=== PATIENT | female | born 1990 | race American Indian/Alaskan Native ===

== ENCOUNTER 2017-09-05 08:33 | Emergency (ER) | payer OTHER ==
[2017-09-05] MEDS ORDERED: PROVENTIL IH ONE (08:57)
[2017-09-05] MEDS ORDERED: DELTASONE PO ONE (09:00)
--- NOTE | 2017-09-05 09:00 | Emergency Department Report ---
ED Asthma HPI - General Chief Complaint: Adult Asthma Stated Complaint: MERRY/ASTHMA Time Seen by Provider: 09/05/17 08:48 Source: patient Mode of arrival: Ambulatory Limitations: No Limitations - History of Present Illness Initial Comments: This is a 27 y.o. female that presents with SOB and chest tightness since last night around 2300. She have a history of asthma and out of albuterol inhaler for 3 months. The weather changed and she noticed a change in breathing but thought taking OTC allergy medication would prevent asthma attack. Symptoms got worse around 0400 this morning and she decided to come in for breathing treatment. Denies chest pain, palpitations, fever, cough, and rhinorrhea. She have a history of HTN as well and currently not taking medication. MD Complaint: shortness of breath, wheezing -: Gradual, Last night Time: 23:00 Asthma History: childhood onset, history of prior ED visit Severity: mild Context: ran out of meds, medication non-compliance, exercise Associated Symptoms: dry cough, chest pain (chest tight) - Related Data Current Asthma Therapy: inhaled bronchodilator (out of albuterol inhaler) Previous Rx's Medication Instructions Recorded Last Taken Type ALBUTEROL Inhaler [ProAir HFA 2 puff IH QID PRN #1 inhalation 09/05/17 Unknown Rx Inhaler] Prednisone [predniSONE 10 mg 10 mg PO .TAPER #1 tab.ds.pk 09/05/17 Unknown Rx (6-Day Pack, 21 Tabs)] Allergies Allergy/AdvReac Type Severity Reaction Status Date / Time pineapple Allergy Itching Verified 09/05/17 08:36 ED Review of Systems ROS: Stated complaint: MERRY/ASTHMA Other details as noted in HPI Constitutional: denies: chills, fever ENT: denies: ear pain, throat pain Respiratory: cough, SOB with exertion, wheezing. denies: shortness of breath Cardiovascular: denies: chest pain, palpitations Gastrointestinal: denies: abdominal pain, nausea, diarrhea Neurological: denies: headache, weakness, paresthesias ED Past Medical Hx - Past Medical History Hx Hypertension: Yes Hx Asthma: Yes - Surgical History Additional Surgical History: C SECTION - Social History Smoking Status: Never Smoker Substance Use Type: None - Medications Home Medications: Home Medications Medication Instructions Recorded Confirmed Last Taken Type ALBUTEROL Inhaler [ProAir HFA 2 puff IH QID PRN #1 inhalation 09/05/17 Unknown Rx Inhaler] Prednisone [predniSONE 10 mg 10 mg PO .TAPER #1 tab.ds.pk 09/05/17 Unknown Rx (6-Day Pack, 21 Tabs)] ED Physical Exam - General Limitations: No Limitations General appearance: alert, in no apparent distress - Respiratory Respiratory exam: Present: normal lung sounds bilaterally, wheezes (throughout, expiratory). Absent: rales, rhonchi, stridor, chest wall tenderness, accessory muscle use - Cardiovascular Cardiovascular Exam: Present: regular rate, normal rhythm, normal heart sounds. Absent: systolic murmur, diastolic murmur, rubs, gallop - GI/Abdominal GI/Abdominal exam: Present: soft, normal bowel sounds - Neurological Exam Neurological exam: Present: alert, oriented X3, normal gait - Psychiatric Psychiatric exam: Present: normal affect, normal mood - Skin Skin exam: Present: warm, dry, intact, normal color. Absent: rash ED Course Vital Signs 09/05/17 09/05/17 08:37 09:40 Temperature 98 F 98.3 F Pulse Rate 75 83 Respiratory 20 20 Rate Blood Pressure 149/65 Blood Pressure 120/86 [Left] O2 Sat by Pulse 95 100 Oximetry ED Medical Decision Making - Medical Decision Making 27 y.o. female that presents with SOB and chest tightness since last night. History of Asthma and HTN. Noncompliant with medication. She ran out of albuterol inhaler 3 months ago. Patient examined by me and in slight distress. Vitals stable. Given duoneb treatment once and prednisone 60 mg po once in ER. Wheezes resolved and sat 100% on room air. Asthma exacerbation, Start albuterol and prednisone taper. Discharged home stable. Encouraged to do supportive care for URI. No medication ordered. Return to work tomorrow. Critical care attestation.: If time is entered above; I have spent that time in minutes in the direct care of this critically ill patient, excluding procedure time. ED Disposition Clinical Impression: Asthma exacerbation Qualifiers: Asthma severity: mild Asthma persistence: intermittent Qualified Code(s): J45.21 - Mild intermittent asthma with (acute) exacerbation Disposition: TO HOME OR SELFCARE Is pt being admited?: No Does the pt Need Aspirin: No Condition: Stable Instructions: Asthma (ED), Reactive Airways Disease (ED) Additional Instructions: It is important to use inhaler or have active albuterol inhaler and avoiding asthma triggers. Complete full course of prednisone steroids as prescribed. Follow up with Primary Care Provider in 24-72 hours. Prescriptions: ALBUTEROL Inhaler [ProAir HFA Inhaler] 2 puff IH QID PRN #1 inhalation PRN Reason: Shortness Of Breath Prednisone [predniSONE 10 mg (6-Day Pack, 21 Tabs)] 10 mg PO .TAPER #1 tab.ds.pk Referrals: PRIMARY CARE, [Primary Care Provider] - 3-5 Days [facility] [Outside] - 3-5 Days [facility] [Outside] - 3-5 Days [facility] [Outside] - 3-5 Days Forms: Work/School Release Form(ED) Time of Disposition: 10:25 Print Language: AUSTRIAN
[2017-09-05 09:40] VITALS: BP 120/86
== END 2017-09-05 10:32 | disposition home or self-care (01) ==
LOC: ED 08:33
DX: J45.21 Mild intermittent asthma with (acute) exacerbation (principal); I10 Essential (primary) hypertension; Z91.018 Allergy to other foods
CPT/HCPCS: 99283; J7512

== ENCOUNTER 2017-09-10 15:56 | Emergency (ER) | payer OTHER ==
[2017-09-10 16:03] VITALS: BP 124/88
[2017-09-10] MEDS ORDERED: MOTRIN PO ONE (16:43)
[2017-09-10 16:52] LABS: HCG Qualitative,Urine Negative (Negative)
[2017-09-10 16:54] LABS: Bacteria,Urine 1+ /HPF (Negative); Bilirubin,Urine NEG (Negative); Blood,Urine NEG (Negative); Color,Urine Yellow (Yellow); Protein,Urine <15 mg/dL mg/dL (Negative); Urobilinogen,Urine < 2.0 mg/dL (<2.0)
--- NOTE | 2017-09-10 16:57 | Emergency Department Report ---
HPI - General Chief Complaint: Extremity Injury, Lower Time Seen by Provider: 09/10/17 16:29 - HPI HPI: Patient is a 27-year-old female presents ED complaining of toe pain status post suitcase falling on her to toe, left foot. Patient denies laceration or swelling but states that her foot toe pain is worsened ED Past Medical Hx - Past Medical History Hx Hypertension: Yes Hx Asthma: Yes - Surgical History Additional Surgical History: C SECTION - Social History Smoking Status: Never Smoker Substance Use Type: None - Medications Home Medications: Home Medications Medication Instructions Recorded Confirmed Last Taken Type ALBUTEROL Inhaler [ProAir HFA 2 puff IH QID PRN #1 inhalation 09/05/17 Unknown Rx Inhaler] Prednisone [predniSONE 10 mg 10 mg PO .TAPER #1 tab.ds.pk 09/05/17 Unknown Rx (6-Day Pack, 21 Tabs)] Cyclobenzaprine [Flexeril] 10 mg PO QHS PRN #20 tablet 09/10/17 Unknown Rx Ibuprofen [Motrin] 800 mg PO Q8HR PRN #30 tablet 09/10/17 Unknown Rx Sulfamethoxazole/Trimethoprim 1 each PO BID #14 tablet 09/10/17 Unknown Rx [Bactrim 400-80 mg Tablet] ED Review of Systems ROS: Stated complaint: TOE INJURY Other details as noted in HPI Constitutional: denies: chills, fever Eyes: denies: eye pain, eye discharge, vision change ENT: denies: ear pain, throat pain Respiratory: denies: cough, shortness of breath, wheezing Cardiovascular: denies: chest pain, palpitations Endocrine: no symptoms reported Gastrointestinal: denies: abdominal pain, nausea, diarrhea Genitourinary: denies: urgency, dysuria, discharge Musculoskeletal: denies: back pain, joint swelling, arthralgia Skin: denies: rash, lesions Neurological: denies: headache, weakness, paresthesias Psychiatric: denies: anxiety, depression Hematological/Lymphatic: denies: easy bleeding, easy bruising Physical Exam - Physical Exam Vital Signs: Vital Signs 09/10/17 16:00 Temperature 98.0 F Pulse Rate 98 H Respiratory 16 Rate Blood Pressure 124/88 O2 Sat by Pulse 100 Oximetry Physical Exam: GENERAL: Alert and oriented x3, no apparent distress, Normal Gait, atraumatic. HEAD: Head is normocephalic and a-traumatic. LUNGS: Symetrical with respiration, No wheezing, no rales or crackles, CTAB. HEART: S1, S2 present, regular rate and rhythm without murmur, no rubs, no gallops. Non tender to palpation EXTREMITIES/MUSCULOSKELETAL: No cyanosis, clubbing, rash, lesions or edema. Full ROM bilaterally. Pedal Pulses 2+ bilaterally. LE 5+ strength bilaterally , NEUROLOGIC: The patient is cooperative with no focal neurologic deficits. Normal speech. Normal sensation in bilateral upper and lower extremities, No loss of sensation, PSYCHIATRIC: Mood is congruent with affect, denies suicidal or homicidal ideations. SKIN: Warm and dry, No lesions, No ulceration or induration present. ED Course Vital Signs 09/10/17 16:00 Temperature 98.0 F Pulse Rate 98 H Respiratory 16 Rate Blood Pressure 124/88 O2 Sat by Pulse 100 Oximetry ED Medical Decision Making - Radiology Data Radiology results: report reviewed, image reviewed Critical care attestation.: If time is entered above; I have spent that time in minutes in the direct care of this critically ill patient, excluding procedure time. ED Disposition Clinical Impression: Toe pain, left UTI (urinary tract infection) Qualifiers: Urinary tract infection type: acute cystitis Hematuria presence: without hematuria Qualified Code(s): N30.00 - Acute cystitis without hematuria Injury of toe on left foot Qualifiers: Encounter type: initial encounter Qualified Code(s): S99.922A - Unspecified injury of left foot, initial encounter Disposition: TO HOME OR SELFCARE Is pt being admited?: No Does the pt Need Aspirin: No Condition: Stable Instructions: Urinary Tract Infection in Women (ED), Arthralgia (ED) Additional Instructions: Make sure to follow up with the primary care physician as discussed. Take all your medications as you've been prescribed. If you have any worsening symptoms or develop new symptoms please return to ED immediately. Prescriptions: Cyclobenzaprine [Flexeril] 10 mg PO QHS PRN #20 tablet PRN Reason: Muscle Spasm Ibuprofen [Motrin] 800 mg PO Q8HR PRN #30 tablet PRN Reason: Pain Sulfamethoxazole/Trimethoprim [Bactrim 400-80 mg Tablet] 1 each PO BID #14 tablet Referrals: PRIMARY CARE, [Primary Care Provider] - 3-5 Days [facility] [Outside] - 3-5 Days [facility] [Outside] - 3-5 Days [facility] [Outside] - 3-5 Days Forms: Work/School Release Form(ED) Time of Disposition: 18:47
--- NOTE | 2017-09-10 19:52 | XRay Report ---
FINAL REPORT PROCEDURE: Left foot. TECHNIQUE: Three views. HISTORY: Second toe injury. COMPARISON: No prior studies are available for comparison. FINDINGS: The bones appear intact without fracture or dislocation. The joint spaces appear normal. The soft tissues are unremarkable. IMPRESSION: Normal study.
== END 2017-09-10 19:10 | disposition home or self-care (01) ==
LOC: ED 15:56
DX: S99.922A Unspecified injury of left foot, initial encounter (principal); I10 Essential (primary) hypertension; N39.0 Urinary tract infection, site not specified; W20.8XXA Other cause of strike by thrown, projected or falling object, initial encounter; Y93.89 Activity, other specified; Y92.89 Other specified places as the place of occurrence of the external cause; Y99.8 Other external cause status
CPT/HCPCS: 81001; 81025; 99284

== ENCOUNTER 2017-10-29 16:49 | Emergency (ER) | payer OTHER ==
[2017-10-29] MEDS ORDERED: DUONEB *Not for PRN Use IH ONE (16:56)
[2017-10-29 17:17] LABS: Basophils % (Auto) 0.3 % (0.0-1.8); Eosinophils % (Auto) 0.4 % (0.0-4.3); Hematocrit 37.3 % (30.3-42.9); Hemoglobin 12.7 gm/dl (10.1-14.3); Lymphocytes # (Auto) 2.1 K/mm3 (1.2-5.4); Lymphocytes % (Auto) 32.7 % (13.4-35.0); Mean Corpuscular HGB Conc 34 % (30-34); Mean Corpuscular Hemoglobin 28 pg (28-32); Mean Corpuscular Volume 84 fl (79-97); Monocytes # (Auto) 0.6 K/mm3 (0.0-0.8); Monocytes % (Auto) 8.7 % (0.0-7.3); Platelet Count 294 K/mm3 (140-440); Red Blood Count 4.47 M/mm3 (3.65-5.03); Red Cell Distribution Width 12.3 % (13.2-15.2)
[2017-10-29 17:28] LABS: BUN/Creatinine Ratio 15; Blood Urea Nitrogen 9 mg/dL (7-17); Hemolysis Index 9
--- NOTE | 2017-10-29 18:53 | XRay Report ---
FINAL REPORT EXAM: XR CHEST ROUTINE 2V HISTORY: Shortness of breath TECHNIQUE: 2 views of the chest. PRIORS: None. FINDINGS: The cardiomediastinal silhouette appears normal. The lungs are clear. The bones and soft tissues are unremarkable. IMPRESSION: No evidence of acute cardiopulmonary disease
== END 2017-10-29 23:45 | disposition left against medical advice (07) ==
LOC: ED 16:49
DX: R06.00 Dyspnea, unspecified (principal); Z53.21 Procedure and treatment not carried out due to patient leaving prior to being seen by health care provider
CPT/HCPCS: 36415; 71046; 80048; 84484; 84703; 85025; 85379; 93005; 93010

== ENCOUNTER 2017-12-28 23:53 | Emergency (ER) | payer OTHER ==
[2017-12-29 00:08] VITALS: BP 148/91
[2017-12-29] MEDS ORDERED: DUONEB *Not for PRN Use IH ONE (00:08)
== END 2017-12-29 02:00 | disposition left against medical advice (07) ==
LOC: ED 23:53
DX: J45.909 Unspecified asthma, uncomplicated (principal); F17.200 Nicotine dependence, unspecified, uncomplicated; Z91.018 Allergy to other foods; Z53.21 Procedure and treatment not carried out due to patient leaving prior to being seen by health care provider

== ENCOUNTER 2018-01-17 20:04 | Emergency (ER) | payer OTHER ==
[2018-01-17] MEDS ORDERED: DUONEB *Not for PRN Use IH ONE ×2 (20:23→20:42)
[2018-01-17] MEDS ORDERED: DELTASONE PO ONE (20:45)
[2018-01-17 21:49] LABS: HCG Qualitative,Urine Negative (Negative)
--- NOTE | 2018-01-17 23:39 | XRay Report ---
FINAL REPORT EXAM: XR CHEST ROUTINE 2V HISTORY: cough and MERRY TECHNIQUE: 2 views of the chest. PRIORS: 10/29/2017 FINDINGS: The cardiomediastinal silhouette appears normal. The lungs are clear. The bones and soft tissues are unremarkable. IMPRESSION: No evidence of acute cardiopulmonary disease
--- NOTE | 2018-01-17 23:59 | Emergency Department Report ---
ED Asthma HPI - General Chief Complaint: Adult Asthma Stated Complaint: MERRY Time Seen by Provider: 01/17/18 23:48 Source: patient, family Mode of arrival: Ambulatory Limitations: No Limitations - History of Present Illness Initial Comments: This is a 27-year-old female here report that she has asthma attack with wheezing, cough and difficulty breathing. She says she's been having nasal congestion and runny nose over the last 2 weeks and now she is having in worsening symptoms. Wheezing worsened over the last 2 days. Reports some chest tightness which is similar when she gets her asthma attack. She says she use albuterol but is not working. She also is requesting a refill on her albuterol because she says she ran out. She says she does have a primary care physician. Denies any nausea or vomiting. Denies any fever or chills. Pain is 0 out of 10 at present. MD Complaint: "asthma attack", shortness of breath, wheezing Onset/Timin -: week(s) Asthma History: childhood onset, history of prior ED visit Severity: similar to prior Context: recent URI, ran out of meds Associated Symptoms: dry cough. denies: fever, chest pain, hemoptysis, leg edema, syncope Treatments Prior to Arrival: inhaled bronchodilator - Related Data Current Asthma Therapy: inhaled bronchodilator Previous Rx's Medication Instructions Recorded Last Taken Type Cyclobenzaprine [Flexeril] 10 mg PO QHS PRN #20 tablet 09/10/17 Unknown Rx Ibuprofen [Motrin] 800 mg PO Q8HR PRN #30 tablet 09/10/17 Unknown Rx Sulfamethoxazole/Trimethoprim 1 each PO BID #14 tablet 09/10/17 Unknown Rx [Bactrim 400-80 mg Tablet] ALBUTEROL Inhaler [ProAir HFA 2 puff IH Q6HR PRN #1 inhalation 01/18/18 Unknown Rx Inhaler] Cetirizine HCl [ZyrTEC] 10 mg PO QAM 14 Days #14 capsule 01/18/18 Unknown Rx Fluticasone [Flonase] 1 spray NS QDAY 14 Days #1 bottle 01/18/18 Unknown Rx Prednisone [predniSONE 10 mg 10 mg PO .TAPER #1 tab.ds.pk 01/18/18 Unknown Rx (6-Day Pack, 21 Tabs)] Allergies Allergy/AdvReac Type Severity Reaction Status Date / Time pineapple Allergy Itching Verified 09/05/17 08:36 ED Review of Systems ROS: Stated complaint: MERRY Other details as noted in HPI Constitutional: denies: chills, fever Eyes: denies: eye discharge ENT: congestion. denies: ear pain, throat pain Respiratory: cough, SOB with exertion, wheezing. denies: shortness of breath, SOB at rest, stridor Cardiovascular: denies: chest pain, palpitations, edema, syncope Gastrointestinal: denies: abdominal pain, nausea, vomiting Musculoskeletal: denies: back pain, joint swelling, arthralgia, myalgia Skin: denies: rash, lesions Neurological: paresthesias. denies: headache ED Past Medical Hx - Past Medical History Previous Medical History?: Yes Hx Hypertension: Yes Hx Asthma: Yes - Surgical History Past Surgical History?: Yes Additional Surgical History: C SECTION - Family History Family history: hypertension - Social History Smoking Status: Never Smoker Substance Use Type: None - Medications Home Medications: Home Medications Medication Instructions Recorded Confirmed Last Taken Type Cyclobenzaprine [Flexeril] 10 mg PO QHS PRN #20 tablet 09/10/17 Unknown Rx Ibuprofen [Motrin] 800 mg PO Q8HR PRN #30 tablet 09/10/17 Unknown Rx Sulfamethoxazole/Trimethoprim 1 each PO BID #14 tablet 09/10/17 Unknown Rx [Bactrim 400-80 mg Tablet] ALBUTEROL Inhaler [ProAir HFA 2 puff IH Q6HR PRN #1 inhalation 01/18/18 Unknown Rx Inhaler] Cetirizine HCl [ZyrTEC] 10 mg PO QAM 14 Days #14 capsule 01/18/18 Unknown Rx Fluticasone [Flonase] 1 spray NS QDAY 14 Days #1 bottle 01/18/18 Unknown Rx Prednisone [predniSONE 10 mg 10 mg PO .TAPER #1 tab.ds.pk 01/18/18 Unknown Rx (6-Day Pack, 21 Tabs)] ED Physical Exam - General Limitations: No Limitations General appearance: alert, in no apparent distress - Head Head exam: Present: atraumatic, normocephalic, normal inspection - Eye Eye exam: Present: normal appearance, PERRL, EOMI Pupils: Present: normal accommodation - ENT ENT exam: Present: normal orophraynx, mucous membranes moist, normal external ear exam, other (bilateral nasal mucosa pale and boggy with clear drainage. Maxillary and frontal sinus nontender to palpate). Absent: TM's normal bilaterally (Bilateral TM congested without erythema) - Neck Neck exam: Present: normal inspection, full ROM, other (no C-spine tenderness). Absent: tenderness, meningismus, lymphadenopathy - Respiratory Respiratory exam: Present: wheezes (bilateral upper lung martinez), other (dry cough). Absent: normal lung sounds bilaterally, respiratory distress, rales, rhonchi, stridor, chest wall tenderness, accessory muscle use, decreased breath sounds, prolonged expiratory - Cardiovascular Cardiovascular Exam: Present: regular rate, normal rhythm, normal heart sounds. Absent: systolic murmur, diastolic murmur - GI/Abdominal GI/Abdominal exam: Present: soft, normal bowel sounds. Absent: distended, tenderness, rigid - Extremities Exam Extremities exam: Present: normal inspection, full ROM, normal capillary refill , other (no clubbing, cyanosis or edema. Pulses 2+ distal extremities and no neurovascular compromise). Absent: tenderness, pedal edema, joint swelling, calf tenderness - Back Exam Back exam: Present: normal inspection, full ROM. Absent: tenderness - Neurological Exam Neurological exam: Present: alert, oriented X3, normal gait - Psychiatric Psychiatric exam: Present: normal affect, normal mood - Skin Skin exam: Present: warm, dry, intact, normal color. Absent: rash ED Course Vital Signs 01/17/18 01/18/18 20:29 01:02 Temperature 98.6 F Pulse Rate 86 82 Respiratory 18 16 Rate Blood Pressure 127/83 Blood Pressure 118/76 [Left] O2 Sat by Pulse 97 100 Oximetry - Reevaluation(s) Reevaluation #1: 01/18/18 00:41 Patient received DuoNeb 1 nebulizer and emergency room and she says she is feeling a lot better. She received prednisone 60 mg by mouth. Patient's lung sounds are clear and reevaluation. ED Medical Decision Making - Lab Data Lab Results 01/17/18 Range/Units 21:39 Urine HCG, Qual Negative (Negative) - EKG Data -: EKG Interpreted by Me (tendon physician in emergency room) EKG shows normal: sinus rhythm Rate: normal (87 bpm) - EKG Data Interpretation: no acute changes, normal EKG - Radiology Data Radiology results: report reviewed Chest x-ray dictated by radiologist and report reviewed by myself. Please see report below Patient: QUYEN DELVALLE MR#: [id number] : 1990 Acct:[id number] Age/Sex: 27 / F ADM Date: 01/17/18 Loc: ED Attending Dr: Ordering Physician: SIMONE COREAS MD Date of Service: 01/17/18 Procedure(s): XR chest routine 2V Accession Number(s): [id number] cc: ED MD JOSS Fluoro Time In Minutes: FINAL REPORT EXAM: XR CHEST ROUTINE 2V HISTORY: cough and MERRY TECHNIQUE: 2 views of the chest. PRIORS: 10/29/2017 FINDINGS: The cardiomediastinal silhouette appears normal. The lungs are clear. The bones and soft tissues are unremarkable. IMPRESSION: No evidence of acute cardiopulmonary disease Transcribed By: GIBRAN Dictated By: HANNAH PITTMAN MD Electronically Authenticated By: HANNAH PITTMAN MD Signed Date/Time: 01/17/182333 DD/ 33 TD/TT: 01/17/182333 - Medical Decision Making This is a 27-year-old female here report that she is having an asthma attack. She states that she needs a refill on her computer all. This was preceded by upper respiratory infection to include nasal congestion and runny nose with cough. He is here to be evaluated Patient was examined by myself and found to have wheezing to bilateral upper lung martinez with dry cough, nasal mucosa congested with clear drainage. Bilateral TMs congested without erythema. Patient with upper respiratory infection with cough and congestion and simply her asthma exacerbation, intermittent. She was given DuoNeb 1 nebulizer treatment and lung sounds evaluated after nebulizer treatment and lung sounds are clear. Patient is also given prednisone 60 mg by mouth in emergency room. Patient stable and she is discharged home in stable condition. Vital signs are stable she says she is better. Discharged home to follow up with primary care physician in 2 days. Patient discharged home with prescription for albuterol, Zyrtec, Flonase and Medrol Dosepak. She was instructed to return to emergency room if her symptoms return or since and she voiced understanding. - Differential Diagnosis PNA, bronchitis, asthma exacerbation, URI with cough and congestion. Critical care attestation.: If time is entered above; I have spent that time in minutes in the direct care of this critically ill patient, excluding procedure time. ED Disposition Clinical Impression: URI with cough and congestion Asthma exacerbation attacks Qualifiers: Asthma severity: mild Asthma persistence: intermittent Qualified Code(s): J45.21 - Mild intermittent asthma with (acute) exacerbation Disposition: DC-01 TO HOME OR SELFCARE Is pt being admited?: No Does the pt Need Aspirin: No Condition: Stable Instructions: Asthma (ED), Upper Respiratory Infection (ED) Additional Instructions: Please take Zyrtec and Flonase for congestion Follow-up with her primary care physician on 01/20/2018 and if he did not have one follow-up at [facility] If his symptoms return or worsens, return to the emergency room. Use albuterol as prescribed Medrol Dosepak as prescribed Prescriptions: ALBUTEROL Inhaler [ProAir HFA Inhaler] 2 puff IH Q6HR PRN #1 inhalation PRN Reason: asthma exacerbation Cetirizine HCl [ZyrTEC] 10 mg PO QAM 14 Days #14 capsule Fluticasone [Flonase] 1 spray NS QDAY 14 Days #1 bottle Prednisone [predniSONE 10 mg (6-Day Pack, 21 Tabs)] 10 mg PO .TAPER #1 tab.ds.pk Referrals: PRIMARY CARE, [Primary Care Provider] - 01/20/18 [facility] [Outside] - 01/20/18 Forms: Work/School Release Form(ED)
[2018-01-18 01:03] VITALS: BP 118/76
== END 2018-01-18 01:04 | disposition home or self-care (01) ==
LOC: ED 20:04
DX: J45.21 Mild intermittent asthma with (acute) exacerbation (principal); J06.9 Acute upper respiratory infection, unspecified; I10 Essential (primary) hypertension; Z91.018 Allergy to other foods
CPT/HCPCS: 71046; 81025; 93005; 93010; 94640; 99283; J7512

== ENCOUNTER 2018-03-19 06:49 | Emergency (ER) | payer OTHER ==
--- NOTE | 2018-03-19 07:54 | Emergency Department Report ---
HPI - General Chief Complaint: Dental/Oral Time Seen by Provider: 03/19/18 07:24 - HPI HPI: This is a 28-year-old female here report that she is having pain on the right side upper and lower tooth for about 2 weeks that she does not have a dentist. Pain is 10 on the 10 and achy. [id number] medication not helping. Denies any nasal congestion or sinus problems. Denies any cough or congestion. Denies any sore throat or drooling. Pain is worse with eating and no alleviating factors. She does not have access to a dentist. Patient denies any fever or chills. ED Past Medical Hx - Past Medical History Previous Medical History?: Yes Hx Hypertension: Yes Hx Asthma: Yes - Surgical History Past Surgical History?: Yes Additional Surgical History: C SECTION - Family History Family history: hypertension - Social History Smoking Status: Never Smoker Substance Use Type: None - Medications Home Medications: Home Medications Medication Instructions Recorded Confirmed Last Taken Type Cyclobenzaprine [Flexeril] 10 mg PO QHS PRN #20 tablet 09/10/17 Unknown Rx Ibuprofen [Motrin] 800 mg PO Q8HR PRN #30 tablet 09/10/17 Unknown Rx Sulfamethoxazole/Trimethoprim 1 each PO BID #14 tablet 09/10/17 Unknown Rx [Bactrim 400-80 mg Tablet] ALBUTEROL Inhaler (OR & NICU) 2 puff IH Q6HR PRN #1 inhalation 01/18/18 Unknown Rx [ProAir HFA Inhaler] Cetirizine HCl [ZyrTEC] 10 mg PO QAM 14 Days #14 capsule 01/18/18 Unknown Rx Fluticasone [Flonase] 1 spray NS QDAY 14 Days #1 bottle 01/18/18 Unknown Rx Prednisone [predniSONE 10 mg 10 mg PO .TAPER #1 tab.ds.pk 01/18/18 Unknown Rx (6-Day Pack, 21 Tabs)] Acetaminophen/Codeine [Tylenol 1 tab PO Q6H PRN #14 tab 03/19/18 Unknown Rx /Codeine # 3 tab] Clindamycin [Clindamycin CAP] 300 mg PO Q8H 10 Days #30 cap 03/19/18 Unknown Rx Ibuprofen [Motrin] 600 mg PO Q8H PRN #12 tablet 03/19/18 Unknown Rx ED Review of Systems ROS: Stated complaint: TOOTHACHE Other details as noted in HPI Constitutional: denies: chills, fever Eyes: denies: eye pain, eye discharge, vision change ENT: dental pain. denies: ear pain, throat pain, congestion Respiratory: denies: cough, shortness of breath, SOB with exertion, SOB at rest , wheezing Cardiovascular: denies: chest pain, palpitations Gastrointestinal: denies: nausea, vomiting Musculoskeletal: denies: back pain, joint swelling, arthralgia, myalgia Skin: denies: rash, lesions Neurological: denies: headache Hematological/Lymphatic: as per HPI, easy bleeding Physical Exam - Physical Exam Vital Signs: Vital Signs 03/19/18 06:57 Temperature 97.8 F Pulse Rate 76 Respiratory 14 Rate Blood Pressure 146/100 O2 Sat by Pulse 98 Oximetry General: This is a 27-year-old female well-nourished well-developed in no acute distress. Physical Exam: Head: Normocephalic atraumatic Ears:BIateral TM pearly lazaro . Terrance EAC with normal exam. No mastoid bone tenderness. Mouth: Moist, no pharyngeal erythema or exudate . Tongue is normal and oral airways patent. Uvula is midline. No abscess noted but noted dental tenderness around tooth #1,2 and 32. Noted dental cavities to several teeth without any pulp exposure. Lip is normal. Neck: Nontender to palpate, supple, normal range of motion. No adenopathy. No c- spine tenderness. Nose: Bilateral nasal mucosa normal exam maxillary and frontal sinuses non- tender to palpate. Eyes: Bilateral Sclerae and conjunctiva without injection. Bilateral pupils equal and reactive to light. Bilateral lids are normal. Normal accommodation.BEOMI Lungs: Clear to auscultate bilaterally, no rhonchi wheezes or rales. Normal work of breathing and no chest wall tenderness CV: S1, S2. Regular rate and rhythm negative murmur. Capillary refill is less than 3 seconds Extremity: No clubbing, cyanosis or edema. +2 pulses in all extremities and no neurovascular compromise Skin: Clean dry and intact, no rashes or lesions ED Course Vital Signs 03/19/18 06:57 Temperature 97.8 F Pulse Rate 76 Respiratory 14 Rate Blood Pressure 146/100 O2 Sat by Pulse 98 Oximetry Vital Signs 03/19/18 03/19/18 06:57 08:16 Temperature 97.8 F Pulse Rate 76 Respiratory 14 Rate Blood Pressure 146/100 Blood Pressure 140/88 [Left] O2 Sat by Pulse 98 Oximetry - Reevaluation(s) Reevaluation #1: 03/19/18 08:08 She received Motrin 800 mg when necessary clindamycin 600 mg by mouth in emergency room and halfway pain. In start treatment for dental caries and toothache ED Medical Decision Making - Medical Decision Making This is a 27-year-old female here reported that she has been having toothache to her right upper and lower back tooth for 2 weeks without any access to dentists. Assessment/plan 1: Dental caries-referral to [facility], patient started on clindamycin and I will be discharged home on clindamycin. 2: Toothache-patient given Motrin 800 mg in emergency room by mouth for pain and will be discharged home on Tylenol No. 3, Motrin. Patient is stable, I discharge diagnosis, treatment plan, medication to her and she voiced understanding and she also understands that she needs to follow up with dentist to call [facility] to schedule an appointment today for follow-up visit dental caries and toothache that has been ongoing for over 2 weeks. Patient is stable, vital signs stable she is afebrile and pains better and discharged home in stable condition with prescription for Tylenol No. 3, Motrin and clindamycin. Good Rx prescription card given. Critical care attestation.: If time is entered above; I have spent that time in minutes in the direct care of this critically ill patient, excluding procedure time. ED Disposition Clinical Impression: Tooth ache, Dental caries Disposition: DC-01 TO HOME OR SELFCARE Is pt being admited?: No Does the pt Need Aspirin: No Condition: Stable Instructions: Dental Caries (ED), Toothache (ED) Additional Instructions: Please follow up with dentist as discussed. Call today to schedule an appointment Take Motrin for mild to moderate pain and please take this medication with food. Take Tylenol No. 3 for severe pain and please do not drive or operate heavy machinery while taking this medication. Take clindamycin antibiotic Please see floss twice daily Gargle with Listerine mouthwash twice daily Referrals: [facility] [Outside] - 03/21/18 Forms: Work/School Release Form(ED)
[2018-03-19] MEDS ORDERED: CLEOCIN PO ONE (08:01)
[2018-03-19] MEDS ORDERED: MOTRIN PO ONE (08:01)
[2018-03-19 08:20] VITALS: BP 140/88
== END 2018-03-19 08:22 | disposition home or self-care (01) ==
LOC: ED 06:49
DX: K02.9 Dental caries, unspecified (principal); I10 Essential (primary) hypertension; J45.909 Unspecified asthma, uncomplicated; Z91.018 Allergy to other foods
CPT/HCPCS: 99282

== ENCOUNTER 2018-03-30 15:04 | Emergency (ER) | payer OTHER ==
[2018-03-30 15:27] VITALS: BP 137/83
--- NOTE | 2018-03-30 17:32 | Emergency Department Report ---
ED Extremity Problem HPI - General Chief complaint: Extremity Problem,Nontraumatic Stated complaint: LFT LEG LUMP/PAIN Time Seen by Provider: 03/30/18 17:20 Source: patient Mode of arrival: Ambulatory Limitations: No Limitations - History of Present Illness MD Complaint: extremity swelling -: Gradual Location: left, lower extremity History of Same: No -: No myalgia, No arthralgia, No fever, No associated dyspnea Quality: aching Consistency: intermittent Improves with: nothing Worsens with: nothing Associated Symptoms: denies other symptoms - Related Data Previous Rx's Medication Instructions Recorded Last Taken Type Cetirizine HCl [ZyrTEC] 10 mg PO QAM 14 Days #14 capsule 01/18/18 Unknown Rx Fluticasone [Flonase] 1 spray NS QDAY 14 Days #1 bottle 01/18/18 Unknown Rx ALBUTEROL Inhaler (OR & NICU) 2 puff IH Q6HR PRN #1 inhalation 03/30/18 Unknown Rx [ProAir HFA Inhaler] Allergies Allergy/AdvReac Type Severity Reaction Status Date / Time pineapple Allergy Itching Verified 03/19/18 06:57 ED Review of Systems ROS: Stated complaint: LFT LEG LUMP/PAIN Other details as noted in HPI Comment: All other systems reviewed and negative Constitutional: no symptoms reported Respiratory: no symptoms reported Genitourinary: denies: urgency, dysuria Musculoskeletal: as per HPI, other (pain l thigh) Hematological/Lymphatic: denies: easy bleeding ED Past Medical Hx - Past Medical History Hx Hypertension: Yes Hx Asthma: Yes - Surgical History Additional Surgical History: C SECTION - Social History Smoking Status: Never Smoker - Medications Home Medications: Home Medications Medication Instructions Recorded Confirmed Last Taken Type Cetirizine HCl [ZyrTEC] 10 mg PO QAM 14 Days #14 capsule 01/18/18 Unknown Rx Fluticasone [Flonase] 1 spray NS QDAY 14 Days #1 bottle 01/18/18 Unknown Rx ALBUTEROL Inhaler (OR & NICU) 2 puff IH Q6HR PRN #1 inhalation 03/30/18 Unknown Rx [ProAir HFA Inhaler] ED Physical Exam - General Limitations: No Limitations General appearance: alert - Head Head exam: Present: atraumatic - Eye Eye exam: Present: normal appearance, EOMI - ENT ENT exam: Present: normal exam - Neck Neck exam: Present: normal inspection - Respiratory Respiratory exam: Present: normal lung sounds bilaterally - Cardiovascular Cardiovascular Exam: Present: regular rate - GI/Abdominal GI/Abdominal exam: Present: soft - Extremities Exam Extremities exam: Present: normal inspection - Expanded Lower Extremity Exam Left Upper Leg exam: Present: full ROM, swelling (upper lateral thigh area) Gait: Positive: observed and normal - Back Exam Back exam: Present: normal inspection - Neurological Exam Neurological exam: Present: alert, oriented X3 - Psychiatric Psychiatric exam: Present: normal affect, normal mood - Skin Skin exam: Present: warm, dry ED Course Vital Signs 03/30/18 15:25 Temperature 98.3 F Pulse Rate 89 Respiratory 16 Rate Blood Pressure 137/83 O2 Sat by Pulse 97 Oximetry - Reevaluation(s) Reevaluation #1: 03/30/18 18:37 xray neg doppler ordered for tomorrow to ro dvt no s/s infection no trauma 2 plus pulses ambulatory ED Medical Decision Making - Radiology Data Radiology results: report reviewed, image reviewed - Medical Decision Making low risk dvt - Differential Diagnosis ro osteochondritis; dvt; superficial phlebitis Critical care attestation.: If time is entered above; I have spent that time in minutes in the direct care of this critically ill patient, excluding procedure time. ED Disposition Clinical Impression: Medication refill, Varicose vein of leg Disposition: DC-01 TO HOME OR SELFCARE Is pt being admited?: No Does the pt Need Aspirin: No Condition: Stable Instructions: Varicose Veins (ED) Additional Instructions: CALL NUMBER PROVIDED IN THE AM FOR YOUR DOPPLER SCAN do not rub the affected area warm compresses will provide comfort if on your feet a lot wear support hose continue home medications Prescriptions: ALBUTEROL Inhaler (OR & NICU) [ProAir HFA Inhaler] 2 puff IH Q6HR PRN #1 inhalation PRN Reason: asthma exacerbation Referrals: CAROLIN HINSON MD [Staff Physician] - 3-5 Days PRIMARY CARE, [Primary Care Provider] - 3-5 Days Forms: Work/School Release Form(ED) Time of Disposition: 18:15
--- NOTE | 2018-03-30 17:32 | Emergency Department Report ---
Chief Complaint: Extremity Problem,Nontraumatic Stated Complaint: LFT LEG LUMP/PAIN Time Seen by Provider: 03/30/18 17:20 - HPI History of Present Illness: 27-year-old female presents to the emergency department with a complaint of some localized thigh pain and swelling that she has been noticing over the past few days. It is a dull ache. She denies any trauma. She tried some extra strength Tylenol for the symptoms without much relief. No recent travel, recent surgery or immobility. Patient has a past medical history of asthma and is also asking for a refill of her Ventolin inhaler. - ROS Review of Systems: Positive for left thigh pain and swelling Negative for fever, shortness of breath, chest pain, rash - Exam Vital Signs: Vital Signs 03/30/18 15:25 Temperature 98.3 F Pulse Rate 89 Respiratory 16 Rate Blood Pressure 137/83 O2 Sat by Pulse 97 Oximetry Physical Exam: There is a localized area of reproducible discomfort as well as a small local area of swelling to the left anterior mid thigh. There is no surrounding erythema or any rash or lesions. Heart and lung sounds are normal to auscultation. MSE screening note: Focused history and physical exam performed. Due to findings the following was ordered: My differential includes superficial thrombophlebitis, osteochondroma, hematoma among others. X-ray of the left femur will be done. Potentially the patient will be set up for an outpatient venous Doppler. ED Disposition for MSE Condition: Stable Referrals: PRIMARY CARE, [Primary Care Provider] - 3-5 Days
--- NOTE | 2018-03-30 18:08 | XRay Report ---
FINAL REPORT EXAM: XR FEMUR 2+V LT HISTORY: left thigh pain TECHNIQUE: Frontal and lateral views left femur Comparison: None FINDINGS: The bony structures are without evidence of fracture, subluxation, lytic or blastic change or periosteal reaction. The hip joint is maintained. The soft tissues are notable for several areas of somewhat irregularly shaped linear radiopaque densities projected in the region of the subcutaneous fat and anterior musculature of the thigh and a single similar focus projected in the region of the soft tissues in proximal medial leg.. These are of unclear etiology. IMPRESSION: 1. No evidence of bony abnormality. 2. Several areas of somewhat irregularly shaped linear radiopaque densities projected in the soft tissues of the thigh and proximal leg. These are of unclear etiology.
== END 2018-03-30 18:41 | disposition home or self-care (01) ==
LOC: ED 15:04
DX: I83.892 Varicose veins of left lower extremity with other complications (principal); Z76.0 Encounter for issue of repeat prescription; I10 Essential (primary) hypertension; J45.909 Unspecified asthma, uncomplicated; Z91.018 Allergy to other foods
CPT/HCPCS: 99283

== ENCOUNTER 2018-04-02 08:25 | Outpatient (CLI) | payer OTHER ==
--- NOTE | 2018-04-02 15:09 | Vascular Lab Report ---
Left Lower Extremity Venous Duplex Study: Reason for Exam: Deep venous thrombosis. Comments on the Right: A limited duplex study was done of the proximal veins of the right lower extremity. All veins visualized are freely compressible without evidence of internal echogenicity. Flow is spontaneous and phasic throughout. No evidence of acute or chronic thrombus is seen in any of the vessels visualized. Comments on the Left: All veins visualized are freely compressible without evidence of internal echogenicity. Flow is spontaneous and phasic throughout. No evidence of acute or chronic thrombus is seen in any of the vessels visualized. Impression: No evidence of acute or chronic deep venous thrombosis in the left lower extremity.
== END 2018-04-02 08:26 | disposition home or self-care (01) ==
LOC: VAS 08:25
PROVIDERS: ATTEND Emergency Medicine
DX: M79.89 Other specified soft tissue disorders (principal); I10 Essential (primary) hypertension; J45.909 Unspecified asthma, uncomplicated; Z91.018 Allergy to other foods

== ENCOUNTER 2018-11-29 14:42 | Emergency (ER) | payer OTHER ==
[2018-11-29 14:57] VITALS: BP 138/88
--- NOTE | 2018-11-29 14:57 | Emergency Department Report ---
Blank Doc - Documentation Documentation: pt is currently 10 weeks has not seen [facility] went to a free [facility] in [place] to have test began having vaginal spotting last night and heavy bleeding today +back pain and abd pain /P:1/A:2
[2018-11-29 15:45] LABS: BUN/Creatinine Ratio 10; Blood Urea Nitrogen 7 mg/dL (7-17); Hemolysis Index 1
[2018-11-29 15:49] LABS: Basophils % (Auto) 0.4 % (0.0-1.8); Eosinophils # (Auto) 0.1 K/mm3 (0.0-0.4); Eosinophils % (Auto) 1.6 % (0.0-4.3); Hematocrit 37.6 % (30.3-42.9); Lymphocytes # (Auto) 1.9 K/mm3 (1.2-5.4); Lymphocytes % (Auto) 39.6 % (13.4-35.0); Mean Corpuscular HGB Conc 35 % (30-34); Mean Corpuscular Volume 84 fl (79-97); Monocytes # (Auto) 0.5 K/mm3 (0.0-0.8); Monocytes % (Auto) 9.9 % (0.0-7.3); Platelet Count 302 K/mm3 (140-440); Red Blood Count 4.46 M/mm3 (3.65-5.03); Red Cell Distribution Width 13.1 % (13.2-15.2)
[2018-11-29 16:04] LABS: Bilirubin,Urine NEG (Negative); Blood,Urine LG (Negative); Color,Urine Yellow (Yellow); Mucus,Urine FEW /HPF; Protein,Urine <15 mg/dL mg/dL (Negative); Urobilinogen,Urine < 2.0 mg/dL (<2.0)
--- NOTE | 2018-11-29 16:06 | Emergency Department Report ---
ED Female HPI - General Chief complaint: Vaginal Bleeding Stated complaint: 10WKS /VAGINAL BLEEDING/BACK/PELVIC PAIN Time Seen by Provider: 11/29/18 14:55 Source: patient Mode of arrival: Ambulatory Limitations: No Limitations - History of Present Illness Initial comments: Sustained 28 year-old female who presents to the emergency room with vaginal bleeding and low back pain for 2 days. Patient states she is possibly 10 weeks . She does not have an [employer]. Patient states she live between [facility] and [place] over the past 2 years and is sharp as for [place] only. She reports diarrhea. Last menstrual period 09/19/2018, A2. Patient states she woke up this morning and there was blood in her pajamas and a large amount of blood in toilet with urination this morning. Patient states she not large amount of blood clots. She denies nausea, vomiting, vaginal discharge, or lightheadedness. MD Complaint: vaginal bleeding Onset/Timin -: days(s) Location: suprapubic Radiation: other (lower back) Severity: moderate Severity scale (0 -10): 6 Quality: aching Consistency: intermittent Improves with: none Worsens with: urination Are you Now?: Yes Last Menstrual Period: 09/19/18 EDC: 06/26/19 Associated Symptoms: vaginal bleeding, hematuria, other (low back pain). denies: vaginal discharge, nausea/vomiting, fever/chills, headaches, loss of appetite, dysuria, rash, seizure, shortness of breath, syncope, weakness - Related Data Sexually active: Yes : 4 Para: 1 A: 2 (one miscarriage and one ) Previous Rx's Medication Instructions Recorded Last Taken Type Cetirizine HCl [ZyrTEC] 10 mg PO QAM 14 Days #14 capsule 01/18/18 Unknown Rx Fluticasone [Flonase] 1 spray NS QDAY 14 Days #1 bottle 01/18/18 Unknown Rx ALBUTEROL Inhaler (OR & NICU) 2 puff IH Q6HR PRN #1 inhalation 03/30/18 Unknown Rx [ProAir HFA Inhaler] ALBUTEROL Inhaler (OR & NICU) 1 puff IH Q4-6H PRN #1 inha 05/13/18 Unknown Rx [ProAir HFA Inhaler] Chlorhexidine Mouthwash [Peridex] 15 ml MM BID #1 bottle 05/13/18 Unknown Rx Ketorolac [Toradol] 10 mg PO Q6H PRN #15 tablet 05/13/18 Unknown Rx Allergies Allergy/AdvReac Type Severity Reaction Status Date / Time pineapple Allergy Itching Verified 03/19/18 06:57 ED Review of Systems ROS: Stated complaint: 10WKS /VAGINAL BLEEDING/BACK/PELVIC PAIN Other details as noted in HPI Constitutional: denies: chills, fever Respiratory: denies: cough, shortness of breath, wheezing Cardiovascular: denies: chest pain, palpitations Gastrointestinal: denies: abdominal pain, nausea, diarrhea Genitourinary: other (vaginal bleed and/or ). denies: urgency, dysuria, discharge Musculoskeletal: back pain. denies: joint swelling, arthralgia Skin: denies: rash, lesions Neurological: denies: headache, weakness, paresthesias Psychiatric: denies: anxiety, depression ED Past Medical Hx - Past Medical History Previous Medical History?: Yes Hx Hypertension: Yes Hx Asthma: Yes - Surgical History Past Surgical History?: Yes Additional Surgical History: C SECTION - Social History Smoking Status: Never Smoker Substance Use Type: None - Medications Home Medications: Home Medications Medication Instructions Recorded Confirmed Last Taken Type Cetirizine HCl [ZyrTEC] 10 mg PO QAM 14 Days #14 capsule 01/18/18 Unknown Rx Fluticasone [Flonase] 1 spray NS QDAY 14 Days #1 bottle 01/18/18 Unknown Rx ALBUTEROL Inhaler (OR & NICU) 2 puff IH Q6HR PRN #1 inhalation 03/30/18 Unknown Rx [ProAir HFA Inhaler] ALBUTEROL Inhaler (OR & NICU) 1 puff IH Q4-6H PRN #1 inha 05/13/18 Unknown Rx [ProAir HFA Inhaler] Chlorhexidine Mouthwash [Peridex] 15 ml MM BID #1 bottle 05/13/18 Unknown Rx Ketorolac [Toradol] 10 mg PO Q6H PRN #15 tablet 05/13/18 Unknown Rx ED Physical Exam - General Limitations: No Limitations General appearance: alert, in no apparent distress, obese - Respiratory Respiratory exam: Present: normal lung sounds bilaterally. Absent: respiratory distress - Cardiovascular Cardiovascular Exam: Present: regular rate, normal rhythm. Absent: systolic murmur, diastolic murmur, rubs, gallop - GI/Abdominal GI/Abdominal exam: Present: soft, normal bowel sounds. Absent: distended, tenderness, guarding, rebound, rigid, organomegaly, mass, bruit, pulsatile mass - Back Exam Back exam: Absent: CVA tenderness (R), CVA tenderness (L) - Neurological Exam Neurological exam: Present: alert, oriented X3 - Psychiatric Psychiatric exam: Present: normal affect, normal mood - Skin Skin exam: Present: warm, dry, intact, normal color. Absent: rash ED Course Vital Signs 11/29/18 14:55 Temperature 99.1 F Pulse Rate 86 Respiratory 18 Rate Blood Pressure 138/88 O2 Sat by Pulse 97 Oximetry - Reevaluation(s) Reevaluation #1: 11/29/18 18:15 Patient wasn't in room when ultrasound resulted. Attempt to call patient on num dillon on chart without answer. A message was left for patient to return to ER for results or give us a call as soon as possible. ED Medical Decision Making - Lab Data Result diagrams: 11/29/18 15:07 11/29/18 15:07 Lab Results 11/29/18 11/29/18 11/29/18 Range/Units 15:07 15:07 15:07 WBC 4.7 (4.5-11.0) K/mm3 RBC 4.46 (3.65-5.03) M/mm3 Hgb 13.0 (10.1-14.3) gm/dl Hct 37.6 (30.3-42.9) % MCV 84 (79-97) fl MCH 29 (28-32) pg MCHC 35 H (30-34) % RDW 13.1 L (13.2-15.2) % Plt Count 302 (140-440) K/mm3 Lymph % (Auto) 39.6 H (13.4-35.0) % [place] % (Auto) 9.9 H (0.0-7.3) % Eos % (Auto) 1.6 (0.0-4.3) % Baso % (Auto) 0.4 (0.0-1.8) % Lymph # 1.9 (1.2-5.4) K/mm3 [place] # 0.5 (0.0-0.8) K/mm3 Eos # 0.1 (0.0-0.4) K/mm3 Baso # 0.0 (0.0-0.1) K/mm3 Seg Neutrophils % 48.5 (40.0-70.0) % Seg Neutrophils # 2.3 (1.8-7.7) K/mm3 Sodium 138 (137-145) mmol/L Potassium 4.0 (3.6-5.0) mmol/L Chloride 104.2 (98-107) mmol/L Carbon Dioxide 21 L (22-30) mmol/L Anion Gap 17 mmol/L BUN 7 (7-17) mg/dL Creatinine 0.7 (0.7-1.2) mg/dL Estimated GFR > 60 ml/min BUN/Creatinine Ratio 10 % Glucose 103 H (65-100) mg/dL Calcium 9.0 (8.4-10.2) mg/dL HCG, Quant < 2 (0-4) mIU/mL Urine Color (Yellow) Urine Turbidity (Clear) Urine pH (5.0-7.0) Ur Specific [place] (1.003-1.030) Urine Protein (Negative) mg/dL Urine Glucose (UA) (Negative) mg/dL Urine Ketones (Negative) mg/dL Urine Blood (Negative) Urine Nitrite (Negative) Urine Bilirubin (Negative) Urine Urobilinogen (<2.0) mg/dL Ur Leukocyte Esterase (Negative) Urine WBC (Auto) (0.0-6.0) /HPF Urine RBC (Auto) (0.0-6.0) /HPF U Epithel Cells (Auto) (0-13.0) /HPF Urine Mucus /HPF Blood Type 11/29/18 11/29/18 Range/Units 15:07 15:17 WBC (4.5-11.0) K/mm3 RBC (3.65-5.03) M/mm3 Hgb (10.1-14.3) gm/dl Hct (30.3-42.9) % MCV (79-97) fl MCH (28-32) pg MCHC (30-34) % RDW (13.2-15.2) % Plt Count (140-440) K/mm3 Lymph % (Auto) (13.4-35.0) % [place] % (Auto) (0.0-7.3) % Eos % (Auto) (0.0-4.3) % Baso % (Auto) (0.0-1.8) % Lymph # (1.2-5.4) K/mm3 [place] # (0.0-0.8) K/mm3 Eos # (0.0-0.4) K/mm3 Baso # (0.0-0.1) K/mm3 Seg Neutrophils % (40.0-70.0) % Seg Neutrophils # (1.8-7.7) K/mm3 Sodium (137-145) mmol/L Potassium (3.6-5.0) mmol/L Chloride (98-107) mmol/L Carbon Dioxide (22-30) mmol/L Anion Gap mmol/L BUN (7-17) mg/dL Creatinine (0.7-1.2) mg/dL Estimated GFR ml/min BUN/Creatinine Ratio % Glucose (65-100) mg/dL Calcium (8.4-10.2) mg/dL HCG, Quant (0-4) mIU/mL Urine Color Yellow (Yellow) Urine Turbidity Clear (Clear) Urine pH 6.0 (5.0-7.0) Ur Specific [place] 1.011 (1.003-1.030) Urine Protein <15 mg/dl (Negative) mg/dL Urine Glucose (UA) Neg (Negative) mg/dL Urine Ketones Neg (Negative) mg/dL Urine Blood Lg (Negative) Urine Nitrite Neg (Negative) Urine Bilirubin Neg (Negative) Urine Urobilinogen < 2.0 (<2.0) mg/dL Ur Leukocyte Esterase Neg (Negative) Urine WBC (Auto) 1.0 (0.0-6.0) /HPF Urine RBC (Auto) > 182.0 (0.0-6.0) /HPF U Epithel Cells (Auto) 1.0 (0-13.0) /HPF Urine Mucus Few /HPF Blood Type O POSITIVE - Radiology Data Radiology results: report reviewed EXAM: US PELVIC COMPLETE, US TRANSVAGINAL HISTORY: vaginal bleeding and pelvic pain TECHNIQUE: Transabdominal and transpelvic and remaining sonogram of the pelvis was performed. COMPARISON: None FINDINGS: The uterus is 11.0 x 4.9 x 6.4 cm and appears normal. Cervical nabothian cysts are incidentally noted. The endometrial stripe thickness is normal at 4.8 mm. No evidence of intrauterine at this time. The ovaries measure 2.3 x 1.7 x 2.1 cm on the right and 2.8 x 1.7 x 2.2 cm on the left. There is a 2.9 x 2.0 x 3.3 cm complex cystic structure in the left adnexa adjacent to the ovary. Etiology is indeterminate. Given the absence of an intrauterine at this time, ectopic cannot be excluded. Clinical correlation and follow-up is advised. Doppler vascular flow is demonstrated to the ovaries. No free fluid. IMPRESSION: There is a 2.9 x 2.0 x 3.3 cm complex cystic structure in the left adnexa adjacent to the ovary. Etiology is indeterminate. Given the absence of an intrauterine at this time, ectopic cannot be excluded. Clinical correlation and follow-up is advised. - Medical Decision Making Patient was examined by me. Vitals are normal and patient is in no acute distress. Obtained a labs and pelvic ultrasound. All labs are unremarkable and negative test. There is a 2.9 x 2.0 x 3.3 cm complex cystic structure in the left adnexa adjacent to the ovary. Etiology is indeterminate. Given the absence of an intrauterine at this time, ectopic cannot be excluded. Clinical correlation and follow-up is advised. Patient was not in her room when I attempt to give results. Patient eloped prior to results. I attempt to call patient and no answer. A message was left for the patient to return to the ER or return my call as soon as possible. Critical care attestation.: If time is entered above; I have spent that time in minutes in the direct care of this critically ill patient, excluding procedure time. ED Disposition Clinical Impression: Left against medical advice Disposition: DC-07 LEFT AGAINST MED ADVICE Is pt being admited?: No Condition: Stable Referrals: JOSE M POPE MD [Primary Care Provider] - 3-5 Days
[2018-11-29 16:08] LABS: RBC,Urine > 182.0 /HPF (0.0-6.0)
--- NOTE | 2018-11-29 17:49 | Ultrasound Report ---
EXAM: US PELVIC COMPLETE, US TRANSVAGINAL HISTORY: vaginal bleeding and pelvic pain TECHNIQUE: Transabdominal and transpelvic and remaining sonogram of the pelvis was performed. COMPARISON: None FINDINGS: The uterus is 11.0 x 4.9 x 6.4 cm and appears normal. Cervical nabothian cysts are incidentally noted . The endometrial stripe thickness is normal at 4.8 mm. No evidence of intrauterine at this time. The ovaries measure 2.3 x 1.7 x 2.1 cm on the right and 2.8 x 1.7 x 2.2 cm on the left. There is a 2.9 x 2.0 x 3.3 cm complex cystic structure in the left adnexa adjacent to the ovary. Etio logy is indeterminate. Given the absence of an intrauterine at this time, ectopic cannot be excluded. Clinical correlation and follow-up is advised. Doppler vascular flow is demonstrated to the ovaries. No free fluid. IMPRESSION: There is a 2.9 x 2.0 x 3.3 cm complex cystic structure in the left adnexa adjacent to the ovary. Etio logy is indeterminate. Given the absence of an intrauterine at this time, ectopic cannot be excluded. Clinical correlation and follow-up is advised. This document is electronically signed by Jesus Persaud MD., Nov 29 2018 05:48:13 PM BOBBY
== END 2018-11-29 19:55 | disposition left against medical advice (07) ==
LOC: ED 14:42
DX: O46.91 Antepartum hemorrhage, unspecified, first trimester (principal); O99.511 Diseases of the respiratory system complicating pregnancy, first trimester; J45.909 Unspecified asthma, uncomplicated; O16.1 Unspecified maternal hypertension, first trimester; Z3A.10 10 weeks gestation of pregnancy
CPT/HCPCS: 36415; 76830; 76856; 80048; 81001; 84702; 85025; 86900; 86901; 99284